=== PATIENT | male | born 1975 | race Caucasian/White ===

== ENCOUNTER 2020-07-10 17:23 | Emergency (ER) | payer OTHER, SELFPAY ==
[2020-07-10] VITALS (23 sets, daily range): BP systolic 119–168; BP diastolic 75–115; PULSE 59–90; RESP 13–25; O2SAT 91–99
--- NOTE | ~2020-07-10 | XR_ITS ---
EXAMINATION: XR chest 2V 07/10/2020 17:47 INDICATION: Right-sided chest pain. Dizziness. PROCEDURE: 2 view chest COMPARISON: 06/18/2017 FINDINGS: The lungs are clear. The cardiomediastinal silhouette is within normal limits. There are no pleural effusions. There is no pneumothorax suspected. IMPRESSION: 1: NO ACUTE CARDIOPULMONARY DISEASE. Reviewed, dictated and finalized at location A. TOR FUELING SUPERVISOR
--- NOTE | 2020-07-10 17:31 | ECG_ITS ---
Measurements Intervals [place] Rate: 70 P: 44 [place]: 159 QRS: -4 QRSD: 104 T: 14 QT: 362 QTc: 391 Interpretive Statements SINUS RHYTHM BASELINE ARTIFACT- I, II, III, AVR, AVL, AVF NORMAL ECG Electronically Signed On 07-10-2020 18:39:38 INVENTORY CONTROL SPECIALIST by Micheal Cruz D.O.
[2020-07-10] MEDS: ASPIRIN 81 MG CHEWABLE TABLET 324 MG PO (17:40)
[2020-07-10 17:43] LABS: Basophils Absolute Auto 0.1 K/mm3 (0.0-0.1); Basophils Percent Auto 0.6 % (0.2-1.2); Eosinophils Absolute Auto 0.6 K/mm3 (0-0.3); Eosinophils Percent Auto 7.1 % (0-4.4); Hemoglobin 16.7 g/dL (14.0-18.0); Immature Granulocyte Absolute 0.03 K/mm3 (0.00-0.031); Immature Granulocyte Percent A 0.4 % (0-0.5); Lymphocytes Absolute Auto 2.66 K/mm3 (0.9-3.2); Lymphocytes Percent Auto 33.7 % (18.3-44.2); Mean Corpuscular HGB Conc 36.3 g/dl (32-36); Mean Corpuscular Hemoglobin 32.2 pg (26-34); Mean Corpuscular Volume 88.6 fl (80-100); Mean Platelet Volume 10.9 fl (7.4-10.4); Monocytes Absolute Auto 0.7 K/mm3 (0.1-0.6); Monocytes Percent Auto 8.9 % (2.6-8.5); Neutrophils Absolute Auto 3.9 K/mm3 (1.3-6.7); Neutrophils Percent Auto 49.3 % (45.5-73.1); Platelet Count Result 224 k/mm3 (150-375); Red Blood Count 5.19 M/mm3 (4.6-6.20); Red Cell Distribution Width 12.2 % (11.5-14.5); White Blood Count 7.9 K/mm3 (4.5-10.0)
[2020-07-10 17:52] LABS: Prothrombin Time 13.3 Seconds (11.1-14.7)
[2020-07-10 17:53] LABS: Partial Thromboplastin Time 25.1 SECONDS (22.3-36.8)
[2020-07-10 17:55] LABS: Anion Gap 10 mmol/L (8-16); Blood Urea Nitrogen 14 mg/dL (9-20); Calcium 9.3 mg/dL (8.4-10.2); Carbon Dioxide 24 mmol/L (22-30); Chloride 106 mmol/L (98-107); Estimated CRCL calculation 144 ml/min; Estimated Glomerular Filt Rate > 60; Glucose 110 mg/dL (75-110); Potassium 4.1 mmol/L (3.4-5.0); Sodium 140 mmol/L (137-145)
[2020-07-10 18:06] LABS: Troponin I < 0.012 ng/mL (0.000-0.034)
--- NOTE | 2020-07-10 18:30 | ED.CHESTPAIN ---
HPI - Chest Pain General Chief Complaint: Chest Pain Stated Complaint: chest pain Time Seen by Provider: 07/10/20 17:35 Source: patient Mode of arrival: ambulatory Limitations: no limitations History of Present Illness HPI narrative: 44-year-old male As far as he knows he is healthy and takes no medications for anything Complains of 3 days of shortness of breath which is getting worse It is episodic and mostly associated with exertion and also associated with anterior chest discomfort and tightness which lasts about 10 to 15 seconds when it happens Today he was short of breath when just lying down and decided to come to the hospital to be checked He estimates that he had 5 or 6 of these episodes today No nausea vomiting diaphoresis palpitations No fever no cough no body aches or other Covid-y symptoms He is a non-smoker, and not diabetic hypertensive or hypercholesterolemic that he is aware of MD complaint: chest heaviness and chest discomfort Onset: during rest and during exertion Related Data Home Medications Medication Instructions Recorded Confirmed No Home Medications 07/10/20 07/10/20 Allergies Allergy/AdvReac Type Severity Reaction Status Date / Time Penicillins Allergy Unknown Verified 07/10/20 17:28 Review of Systems Review of Systems: All systems reviewed & are unremarkable except as noted in HPI and below Constitutional: Constitutional: Denies chills, Denies fatigue, Denies fever(s), Denies headache(s) and Denies weakness Eyes: Eyes: Reports no additional eye complaints and Denies change in vision ENT: Denies headache(s), Denies epistaxis, Denies nasal congestion and Denies sore throat Cardiovascular: Cardiovascular: Reports chest pain, Denies leg edema, Denies palpitations and Denies dyspnea Respiratory: Respiratory: Denies cough, Reports dyspnea and Denies wheezing Gastrointestinal: Gastrointestinal: Denies abdominal pain, Denies diarrhea, Denies nausea and Denies vomiting Genitourinary: Genitourinary: Denies hematuria, Denies dysuria and Denies urinary frequency Musculoskeletal: Musculoskeletal: Denies deformity, Denies arthralgias, Denies joint swelling, Denies muscle weakness and Denies numbness Integumentary/Breasts: Skin/Breast: Denies rash and Denies wounds Neurologic: Denies headache(s), Denies focal weakness, Denies numbness and Denies weakness Psychiatric: Psychiatric: Reports no additional psychiatric complaints Endocrine: Endocrine: Denies fatigue and Denies palpitations Hematologic/Lymphatic: Hematologic/Lymphatic: Denies easy bleeding and Denies easy bruising Allergic/Immunologic: Allergic/Immunologic: Denies wheezing PMFSH Social History Social History Gender identity (if verbalized by the patient): Male Exam Const: General: no acute distress, well developed and awake Nutritional Appearance: well nourished Orientation/consciousness: patient oriented x3 (alert) Limitations: no limitations HENMT: Head: normocephalic and atraumatic Ears: external ears normal General nose exam: No nasal discharge present and no epistaxis Face and sinus: face symmetric Eyes: Conjunctivae: conjunctivae normal Sclera: sclerae normal EOM: EOMs intact bilaterally Neck: Neck: normal visual inspection, supple and no JVD Chest: Chest palpation & inspection: deferred and no tenderness Resp: Effort & Inspection: normal respiratory effort Auscultation: clear to auscultation bilaterally, no rales, no rhonchi, no wheezes and other (BS =) Cardio: Rate: regular rate Rhythm: regular rhythm Heart sounds: no gallops and no murmurs GI: Inspection: normal to inspection GI Palp: Yes Soft to palpation and No Tenderness to palpation present (GI) Back/Spine/Pelvis: Thoracic/Lumbar Spine: thoracic and lumbar spine normal to inspection Skin: General skin exam: normal color and no rashes or lesions noted Neuro: General: patient oriented x3 (alert), moves all extremities and no
[2020-07-10 20:47] LABS: Troponin I < 0.012 ng/mL (0.000-0.034)
[2020-07-11 17:50] LABS: SARS-CoV-2 RNA PCR Negative
== END 2020-07-10 21:40 | disposition home or self-care (01) ==
PROVIDERS: Emergency Provider Emergency Medicine
DX: R07.9 Chest pain, unspecified (principal); Z20.828 Contact with and (suspected) exposure to other viral communicable diseases
CPT/HCPCS: 36415; 71046; 80048; 84484; 85025; 85610; 85730; 87635; 93005; 99284; A9270; C9803; U0003

== ENCOUNTER 2020-08-21 13:27 | Outpatient (CLI) | payer OTHER, SELFPAY ==
--- NOTE | ~2020-08-21 | XR_ITS ---
XR lumbar spine min 4V DATE: 08/21/2020 13:50 INDICATION: Chronic left low back pain with sciatica TECHNIQUE: AP, lateral, bilateral oblique views and coned lateral lumbosacral view COMPARISON: None FINDINGS: There is severe degenerative disc disease at L5-S1. No fracture or bone destruction, spondylolysis or spondylolisthesis. The lumbar pedicles are intact. The sacroiliac joints appear normal. IMPRESSION: Severe degenerative disc disease at L5-S1 Reviewed, dictated and finalized at location A. ST RESOURCES PROFESSOR
== END 2020-08-21 13:28 | disposition home or self-care (01) ==
DX: M54.42 Lumbago with sciatica, left side (principal); G89.29 Other chronic pain; M51.36 Other intervertebral disc degeneration, lumbar region
CPT/HCPCS: 72110

== ENCOUNTER 2020-09-12 18:01 | Emergency (ER) | payer OTHER, SELFPAY ==
[2020-09-12 18:12] VITALS: BP 147/104; PULSE 83; RESP 20; TEMP 36; O2SAT 96
--- NOTE | 2020-09-12 18:14 | ED.ABDPAIN ---
HPI - Abdominal Pain General Chief Complaint: Neck Pain/Injury Stated Complaint: throat pain Time Seen by Provider: 09/12/20 18:14 Source: patient Mode of arrival: ambulatory Limitations: no limitations History of Present Illness HPI narrative: Yanick Chen is a 44 yo male with no PMH who [facility] what appears to be an esophageal obstruction. Patient was eating chicken at lunch today and was eating too fast and states he swallowed a big piece of chicken and was on able to feel like it went down or be able to get up. He went to the bathroom to try to make some prominence of the chicken red, but he still has been unable to drink any liquids since 1230 this afternoon. He tried to take some antiacids thinking it might be GERD-like symptoms and those also came right back up. Patient denies any current pain, has had greater salivary amount in mouth in the last few hours Related Data Home Medications Medication Instructions Recorded Confirmed No Home Medications 07/10/20 07/10/20 Allergies Allergy/AdvReac Type Severity Reaction Status Date / Time Penicillins Allergy Unknown Verified 07/10/20 17:28 Review of Systems Review of Systems: Narrative: CONSTITUTIONAL: Denies fever, chills, sweats. EYES: Denies visual changes, redness, discharge. ENT: Denies rhinorrhea, congestion, sore throat, otalgia. CARDIOVASCULAR: Denies chest pain, palpitations, edema. RESPIRATORY: Denies dyspnea, wheezing, cough GASTROINTESTINAL: Denies abdominal pain, nausea, vomiting, diarrhea. Appears to have esophageal obstruction after choking on chicken today GENITOURINARY: Denies dysuria, hematuria, abnormal discharge SKIN: Denies rash or itching. NEUROLOGIC: Denies numbness, or focal weakness. PSYCHIATRIC: Denies anxiety or depression. [facility] Past Medical History Medical History No acute medical problems Family History Family History (Updated 09/12/20 @ 18:31 by Catalina Lama CNP) Other Diabetes mellitus Heart disease High cholesterol Hypertension Social History Social History (Updated 09/12/20 @ 18:31 by Catalina Lama CNP) Smoking status: Never smoker Alcohol intake: never Gender identity (if verbalized by the patient): Male Comments At time of signature, I agree with nursing past medical, surgical, social and family history. There is no relevant family history pertinent to the presenting complaint. Blood pressure is elevated due to esophageal restriction and symptoms thereof Exam Narrative: Exam Narrative: GENERAL: This is a well-nourished, well-developed patient, in mild distress. HEAD: normocephalic, atraumatic. EYES: Sclera clear/white. Vision is grossly intact. EARS: External ears normal,. Hearing grossly intact. NOSE: External nose normal without nasal discharge, nares without redness, no rhinorrhea. THROAT: Mucous membranes dry NECK: Neck supple, non-tender CARDIOVASCULAR: Regular rate and rhythm without murmurs, gallops, or rubs. RESPIRATORY: Clear to auscultation. Breath sounds equal bilaterally. No wheezes, rales, or rhonchi. GASTROINTESTINAL: Abdomen soft, non-tender, SKIN: warm, intact with no suspicious lesions or rash, good texture and turgor. NEURO: awake, alert, and oriented to person, place and time. There were no obvious focal neurologic abnormalities. Steady gait EXTREMITIES: Normal range of motion. BACK: Nontender without deformity Course Course Emergency Course: Patient came to [facility] after choking on chicken this afternoon about 1230 and unable to drink or swallow Patient states that still feels like there is something in his throat transferred to [facility] for further evaluation Vital Signs Vital signs: Vital Signs Temperature 96.8 F L 09/12/20 18:12 Pulse Rate 83 09/12/20 18:12 Respiratory Rate 20 09/12/20 18:12 Blood Pressure 147/104 H 09/12/20 18:12 Pulse Oximetry 96 09/12/20 18:1
== END 2020-09-12 18:32 | disposition short-term general hospital (02) ==
PROVIDERS: Emergency Provider Nurse Practitioner
DX: K22.2 Esophageal obstruction (principal)
CPT/HCPCS: 99212; G0463

== ENCOUNTER 2020-09-12 18:42 | Emergency (ER) | payer OTHER, SELFPAY ==
[2020-09-12 18:51] VITALS: BP 144/98; PULSE 87; RESP 18; TEMP 36.7; O2SAT 96
--- NOTE | 2020-09-12 19:32 | ED.GENADULT ---
HPI - General Adult General Chief complaint: Unspecified Stated complaint: chicken stuck in throat Time Seen by Provider: 09/12/20 19:16 Source: patient Mode of arrival: ambulatory Limitations: no limitations History of Present Illness HPI narrative: This is a 44 year old male who presents for evaluation of a food impaction. He states he was eating chicken at lunch today and it became stuck. He thought he was able to get it out but whenever he drinks water it comes back up. He still feels like something is stuck in his lower throat. He reports he occasionally he feels like his food gets stuck but eventually it goes down. HE denies GI evaluation or upper endoscopy. He denies chest pain or shortness of breath. Related Data Allergies Allergy/AdvReac Type Severity Reaction Status Date / Time Penicillins Allergy Unknown Verified 09/12/20 18:56 Review of Systems Review of Systems: All systems reviewed & are unremarkable except as noted in HPI and below Constitutional: Constitutional: Denies chills and Denies fever(s) ENT: Denies change in voice Respiratory: Respiratory: Denies cough and Denies hemoptysis Gastrointestinal: Gastrointestinal: Denies abdominal pain PMFSH Past Medical History Medical History No acute medical problems Family History Family History (Updated 09/12/20 @ 18:31 by Catalina Lama CNP) Other Diabetes mellitus Heart disease High cholesterol Hypertension Social History Social History (Updated 09/12/20 @ 18:31 by Catalina Lama CNP) Smoking status: Never smoker Alcohol intake: never Gender identity (if verbalized by the patient): Male Exam Narrative: Exam Narrative: GENERAL: Well-appearing, well-nourished, and in no acute distress. HEAD: Normocephalic, atraumatic EYES: PERRLA and EOMI, conjunctiva clear without discharge NOSE: Nares clear, no rhinorrhea or epistaxis THROAT:Mucous membranes moist, Oropharynx normal without erythema, exudate, peritonsillar swelling or fluctuance NECK: Supple, without lymphadenopathy or mass RESPIRATORY: No respiratory distress, Airway patent, Respirations non-labored, Clear to auscultation without rales, rhonchi or wheeze HEART: Regular rate and rhythm. No murmur heard. Normal peripheral pulses. ABDOMEN: Soft, nontender, nondistended, normal active bowel sounds. No masses. No rebound or guarding, No organomegaly. EXTREMITIES: No edema, normal strength with full range of motion. SKIN: Warm, dry, normal color without rash NEURO: Alert and oriented x3. CN 2-12 grossly intact. No focal deficits. PSYCH: Normal mood and affect. Course Reevaluation(s) Reevaluation #1: Patient states he feels better. HE no longer feels like anything is stuck in his throat. He is able to drink cup of water quickly without nausea or vomiting. He is tolerating his secretions . No vomiting. I discussed with patient discharge plan and need to follow up with GI for upper endoscopy. Date: 09/12/20 Time: 20:47 Vital Signs Vital signs: Vital Signs Temperature 98.1 F 09/12/20 18:51 Pulse Rate 87 09/12/20 18:51 Respiratory Rate 18 09/12/20 18:51 Blood Pressure 144/98 H 09/12/20 18:51 Pulse Oximetry 96 09/12/20 18:51 Temperature 98.1 F 09/12/20 18:51 Pulse Rate 81 09/12/20 21:20 Respiratory Rate 19 09/12/20 21:20 Blood Pressure 138/90 09/12/20 21:20 Pulse Oximetry 97 09/12/20 21:20 Medical Decision Making Vital Signs Vital Signs: Vital Signs Temperature 98.1 F 09/12/20 18:51 Pulse Rate 87 09/12/20 18:51 Respiratory Rate 18 09/12/20 18:51 Blood Pressure 144/98 H 09/12/20 18:51 Pulse Oximetry 96 09/12/20 18:51 Temperature 98.1 F 09/12/20 18:51 Pulse Rate 81 09/12/20 21:20 Respiratory Rate 19 09/12/20 21:20 Blood Pressure 138/90 09/12/20 21:20 Pulse Oximetry 97 09/12/20 21:20 Discharge Plan Discharge Clinical I
[2020-09-12] MEDS: GLUCAGON FOR INJ 1 MG VIAL IV PUSH (19:45)
[2020-09-12 20:20] VITALS: BP 133/78; PULSE 97; RESP 14; O2SAT 96
[2020-09-12 21:20] VITALS: BP 138/90; PULSE 81; RESP 19; O2SAT 97
== END 2020-09-12 21:20 | disposition home or self-care (01) ==
PROVIDERS: Emergency Provider General Practice; PCP Family Medicine
DX: T18.128A Food in esophagus causing other injury, initial encounter (principal)
CPT/HCPCS: 96374; 99284; J1610

== ENCOUNTER 2021-04-23 10:18 | Emergency (ER) | payer OTHER, SELFPAY ==
[2021-04-23 10:27] VITALS: BP 143/80; PULSE 70; RESP 18; TEMP 37.3; O2SAT 98
--- NOTE | 2021-04-23 10:27 | ED.DENTAL ---
HPI - Dental/Oral General Chief complaint: Dental/Oral Stated complaint: Tooth Pain Time Seen by Provider: 04/23/21 10:27 Source: patient, family, RN notes reviewed and old records reviewed Mode of arrival: ambulatory Limitations: no limitations History of Present Illness HPI Narrative: 45-year-old male who presents to [facility] with complaints of acute dental pain to the left lower #22 tooth with tooth broken. Patient has redness, swelling and pain of gums around #22 tooth with facial swelling noted. Patient denies any difficulty with his breathing or any difficulty with swallowing. He states that he has been taking Ibuprofen and applying ice to his swollen face. Patient states that he does not have a dentist but plans to call around and get appointment as soon as possible, list given. MD Complaint: tooth pain and tooth injury Location: Tooth # (22) Onset (ago): day(s) (2) Duration: constant Severity: severe Severity scale (1-10): 7 Exacerbating factors: chewing Treatment prior to arrival: oral analgesic Related Data Allergies Allergy/AdvReac Type Severity Reaction Status Date / Time Penicillins Allergy Unknown Verified 09/12/20 18:56 Review of Systems Review of Systems: CONSTITUTIONAL: Denies fever, chills, or sweats. EYES: Denies visual changes, redness, or discharge. ENT: Denies rhinorrhea, congestion, sore throat, or otalgia.positive for dental pain to left #22 tooth and facial swelling CARDIOVASCULAR: Denies chest pain, palpitations, or edema. RESPIRATORY: Denies cough or dyspnea. GASTROINTESTINAL: Denies abdominal pain, nausea, vomiting, or diarrhea. GENITOURINARY: Denies dysuria or hematuria. SKIN: Denies rash or itching. MUSCULOSKELETAL: Denies back pain, joint pain, or myalgia. NEUROLOGIC: Denies headache, numbness, or weakness. PSYCHIATRIC: Denies anxiety or depression. All systems reviewed & are unremarkable except as noted in HPI and below PMFSH Past Medical History Medical History (Updated 04/23/21 @ 10:58 by Steffany Campos NP) GERD (gastroesophageal reflux disease) No acute medical problems Surgical History Surgical History (Updated 04/23/21 @ 10:58 by Steffany Campos NP) H/O left inguinal hernia repair Family History Family History (Updated 04/23/21 @ 10:59 by Steffany Campos NP) Mother Diabetes mellitus Heart disease Hypertension Grandparent Cerebrovascular accident Father Heart disease Other High cholesterol Social History Social History (Updated 04/23/21 @ 10:42 by Steffany Campos NP) Smoking status: Never smoker Alcohol intake: never Substance use: never Living arrangements: with family Gender identity (if verbalized by the patient): Male Comments at time of signature, agree with nursing past medical, surgical, social and family history. There is no relevant family history pertinent to the presenting complaint Exam Narrative: GENERAL: Well-appearing, well-nourished, and in no acute distress. HEAD: Normocephalic, atraumatic. EYES: PERRLA and EOMI. ENT: Nares clear, no rhinorrhea or epistaxis. Mucous membranes moist.TM's normal with good light reflex, throat pink with no lesions or exudates, no tonsil enlargement, dental abscess of left gum around #22 tooth with broken and facial swelling noted. No Mike angina noted, no trismus. NECK: Supple.No lymphadenopathy CHEST: Clear to auscultation. No respiratory distress.SAO2 98% on room air, no difficulty with breathing. HEART: Regular rate and rhythm. No murmur heard. Normal peripheral pulses. ABDOMEN: Soft, nontender, nondistended, normal active bowel sounds. EXTREMITIES: Normal range of motion. No edema. SKIN: Warm, dry, no rash. NEURO: No focal deficits. Alert and oriented x3. MDM - Dental/Oral Differential Diagnosis Differential diagnosis: Likely gingival abscess, dental caries, toothache, dental abscess, fracture of tooth and other (Dentalgia) Medical Records Attestation: I reviewed the patien
== END 2021-04-23 10:51 | disposition home or self-care (01) ==
PROVIDERS: Emergency Provider Registered Nurse
DX: K04.7 Periapical abscess without sinus (principal); S02.5XXA Fracture of tooth (traumatic), initial encounter for closed fracture; X58.XXXA Exposure to other specified factors, initial encounter; K21.9 Gastro-esophageal reflux disease without esophagitis
CPT/HCPCS: 99213; G0463

== ENCOUNTER 2023-06-18 13:48 | Emergency (ER) | payer OTHER, SELFPAY ==
[2023-06-18 14:05] VITALS: BP 143/87; PULSE 115; RESP 20; TEMP 37.5; O2SAT 97
--- NOTE | 2023-06-18 14:11 | ED.GENADULT ---
HPI - General Adult General Chief complaint: Upper Respiratory Infection Stated complaint: Unknown Source: patient, RN notes reviewed and old records reviewed Mode of arrival: ambulatory Limitations: no limitations History of Present Illness HPI narrative: 47-year-old male patient presents to [facility] with complaint of sore throat, fevers, chills, headache, and myalgia for 3 days. Patient denies shortness of breath, cough, chest pain, dizziness. Related Data Allergies Allergy/AdvReac Type Severity Reaction Status Date / Time Penicillins AdvReac Mild Hives Verified 06/18/23 13:57 Review of Systems Constitutional: Constitutional: Reports body ache(s), Reports chills, Reports fever(s) and Reports malaise Eyes: Eyes: Reports no additional eye complaints ENT: Reports sore throat Cardiovascular: Cardiovascular: Reports no additional cardiovascular complaints Respiratory: Respiratory: Reports no additional respiratory complaints, Denies chest congestion and Denies cough Neurologic: Reports system reviewed and no additional complaints, except as documented PMFSH Past Medical History Medical History GERD (gastroesophageal reflux disease) No acute medical problems Surgical History Surgical History H/O left inguinal hernia repair Family History Family History Mother Diabetes mellitus Heart disease Hypertension Grandparent Cerebrovascular accident Father Heart disease Other High cholesterol Social History Social History Smoking status: Never smoker Alcohol intake: never Substance use: never Living arrangements: with family Gender identity (if verbalized by the patient): Male Comments At the time of my signature, I reviewed and agree with the nursing past medical, surgical, social, and family history. There is no relevant family history pertinent to the patient complaint. Exam Const: General: cooperative, healthy appearing, ill appearing and well nourished Nutritional Appearance: well nourished Orientation/consciousness: patient oriented x3 Limitations: no limitations HENMT: Head: normal to inspection and normocephalic Ears: external ears normal, TM's normal bilaterally, mastoids normal and Abnormal EAC present Face/Nose/Sinus: normal facial exam Face and sinus: normal facial exam Mouth: Yes Normal oral and palatal mucosa present, Yes oropharynx normal and Yes moist mucous membranes Throat: uvula midline, abnormal tonsil bilateral erythema, exudates and hypertrophy, posterior oropharynx abnormal erythema and exudates and no uvular edema Eyes: General: appearance normal, both eyes and all related structures Sclera: sclerae normal Pupils: Equal, round and reactive pupils present Resp: Effort & Inspection: normal respiratory effort, able to speak in complete sentences, no audible wheezes, no cough, no respiratory distress and no retractions Auscultation: clear to auscultation bilaterally, no crackles, no rales, no rhonchi and no wheezes Cardio: Rate: regular rate Rhythm: regular rhythm Skin: General skin exam: normal color and no rashes or lesions noted Neuro: General: patient oriented x3 Cranial nerves: Yes Equal, round and reactive pupils present Psych: Appearance: grossly normal Course Course Emergency Course: Some parts of this dictation were generated by voice recognition software and may contain typographical and/or grammatical inaccuracies. Level of Care: Express Care Visit Vital Signs Vital signs: Vital Signs Temperature 99.5 F 06/18/23 14:05 Pulse Rate 115 H 06/18/23 14:05 Respiratory Rate 20 06/18/23 14:05 Blood Pressure 143/87 H 06/18/23 14:05 Pulse Oximetry 97 06/18/23 14:05 Oxygen Delivery Room Air 06/18/23 14:05
== END 2023-06-18 14:19 | disposition home or self-care (01) ==
PROVIDERS: Emergency Provider Registered Nurse
DX: J02.0 Streptococcal pharyngitis (principal); K21.9 Gastro-esophageal reflux disease without esophagitis
CPT/HCPCS: 99213; G0463

== ENCOUNTER 2023-06-25 16:20 | Emergency (ER) | payer OTHER, SELFPAY ==
[2023-06-25] VITALS (13 sets, daily range): BP systolic 150–197; BP diastolic 98–109; PULSE 76–100; RESP 13–33; TEMP 37.2; O2SAT 94–98
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
== END 2023-06-25 18:26 | disposition home or self-care (01) ==
PROVIDERS: Emergency Provider Emergency Medicine; PCP Obstetrics & Gynecology
DX: R07.89 Other chest pain (principal); K21.9 Gastro-esophageal reflux disease without esophagitis; V49.40XA Driver injured in collision with unspecified motor vehicles in traffic accident, initial encounter
CPT/HCPCS: 71046; 99283

== ENCOUNTER 2023-06-28 08:50 | Emergency (ER) | payer OTHER, SELFPAY ==
[2023-06-28 09:11] VITALS: BP 141/86; PULSE 73; RESP 16; TEMP 36.4; O2SAT 98
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
== END 2023-06-28 09:43 | disposition home or self-care (01) ==
PROVIDERS: Emergency Provider Nurse Practitioner Family
DX: Z02.79 Encounter for issue of other medical certificate (principal); V89.2XXA Person injured in unspecified motor-vehicle accident, traffic, initial encounter; K21.9 Gastro-esophageal reflux disease without esophagitis
CPT/HCPCS: 99211; 99212; G0463